=== PATIENT | female | born 1935 | race Two or more races ===

== ENCOUNTER 2020-12-10 13:50 | Emergency (ER) | payer MEDICARE ==
[~2020-12-10] VITALS: Ht 170.2 cm; Wt 66.0 kg
[2020-12-10 14:05] VITALS: BP 186/87
[2020-12-10] MEDS ORDERED: DIPH,PERTUSS(ACELL),TET VAC/PF 0.5 ML SYRINGE. VAX IM ONE (14:15)
--- NOTE | 2020-12-10 14:37 | PHYS DOC ---
Past Medical History Past Surgical History: Other Additional Past Surgical Histo: kidney donation (LYLA GONGORA INDUSTRIAL PSYCHOLOGIST) Smoking Status: Current Every Day Smoker Alcohol Use: None (LYLA GONGORA INDUSTRIAL PSYCHOLOGIST) General Adult EDM: Chief Complaint: MECHANICAL FALL HPI: HPI: Patient is a 85 year old female patient who presents to the ED today to be evaluated after falling. Patient states she was at the hospital, she accidentally fell hitting her head on the ground. Patient denies any loss of consciousness. Denies any neck pain, mid or low back pain. Reports being on aspirin 81 mg daily. She states she is from [place] visiting her brother who is in this hospital after having a heart attack and this is worrying her. (LYLA GONGORA INDUSTRIAL PSYCHOLOGIST) Review of Systems: Review of Systems: Constitutional: Denies fever or chills. [] Eyes: Denies change in visual acuity. [] HENT: Denies nasal congestion or sore throat. [] Respiratory: Denies cough or shortness of breath. [] Cardiovascular: Denies chest pain or edema. [] GI: Denies abdominal pain, nausea, vomiting, bloody stools or diarrhea. [] : Denies dysuria. [] Musculoskeletal: Denies back pain or joint pain. [] Integument: Denies rash. [] Neurologic: Reports falling and hitting her head on the ground, denies focal weakness or sensory changes. [] Psychiatric: Denies depression or anxiety. [] (LYLA GONGORA Nan INDUSTRIAL PSYCHOLOGIST) Heart Score: C/O Chest Pain: N/A Risk Factors: Risk Factors: DM, Current or recent (<one month) smoker, HTN, HLP, family history of CAD, obesity. Risk Scores: Score 0 - 3: 2.5% MACE over next 6 weeks - Discharge Home Score 4 - 6: 20.3% MACE over next 6 weeks - Admit for Clinical Observation Score 7 - 10: 72.7% MACE over next 6 weeks - Early Invasive Strategies (LYLA GONGORA Nan INDUSTRIAL PSYCHOLOGIST) Current Medications: Current Medications Medications (Trade) Dose Ordered Sig/Mary Start Time Stop Time Status Last Admin Dose Admin Diphtheria/ Tetanus/Acell Pertussis (ADACEL TDap SYRINGE) 0.5 ml ONCE ONCE 12/10/20 14:15 12/10/20 14:16 DC 12/10/20 14:25 0.5 ML (LYLA GONGORA INDUSTRIAL PSYCHOLOGIST) Allergies: Allergies: Allergies Coded Allergies Type Severity Reaction Last Updated Verified No Known Drug Allergies 12/10/20 No (LYLA GONGORA INDUSTRIAL PSYCHOLOGIST) Physical Exam: PE: Constitutional: Well developed, well nourished, no acute distress, non-toxic appearance. [] HENT: Normocephalic,bilateral external ears normal, oropharynx moist, no oral exudates, nose normal. [] Eyes: PERRLA, EOMI, conjunctiva normal, no discharge. [] Neck: Normal range of motion, no tenderness, supple, no stridor. [] Cardiovascular:Heart rate regular rhythm, no murmur [] Lungs & Thorax: Bilateral breath sounds clear to auscultation [] Abdomen: Bowel sounds normal, soft, no tenderness, no masses, no pulsatile masses. [] Skin: Warm, dry, no erythema, no rash. [] Back: No tenderness, no CVA tenderness. [] Extremities: No tenderness, no cyanosis, no clubbing, ROM intact, no edema. [] Neurologic: Bruising noted on the face, nasal bridge, right side of the mouth, alert and oriented X 3, normal motor function, normal sensory function, no focal deficits noted. Cranial nerves II through XII intact Psychologic: Affect normal, judgement normal, mood normal. [] (LYLA GONGORA INDUSTRIAL PSYCHOLOGIST) Current Patient Data: Vital Signs: Vital Signs Date Time Temp Pulse Resp B/P (MAP) Pulse Ox O2 Delivery O2 Flow Rate FiO2 12/10/20 14:05 97.5 84 16 186/87 (120) 97 Room Air 97.5 (LYLA GONGORA INDUSTRIAL PSYCHOLOGIST) EKG: EKG: [] (LYLA GONGORA INDUSTRIAL PSYCHOLOGIST) Radiology/Procedures: Radiology/Procedures: []PROCEDURE: CT MAXILLOFACIAL WO CONTRAST EXAM: CT HEAD WITHOUT IV CONTRAST CLINICAL HISTORY: Reason: fall / Spl. Instructions: / History: COMPARISON: None. TECHNIQUE: Routine CT of the head without contrast. Soft tissues and bone windows were reviewed. PQRS compliance statement - One or more of the following individualized dose reduction techniques were utilized for this study: 1. Automated exposure control 2. Adjustment of the mA and/or kV according to patient size 3. Use of iterative reconstruction technique FINDINGS: There is no evidence of hemorrhage, mass or extra-axial fluid collection. Thompson-white differentiation is maintained with no evidence of edema. Subcortical, periventricular as well as deep white matter hypoattenuation likely changes of chronic small vessel disease. There is no mass effect or shift of the intracranial structures. The ventricles and cerebral sulci are prominent for the patients stated age consistent with generalized cerebral volume loss. The cerebellum and brainstem are unremarkable. The calvarium demonstrates no evidence of fracture or focal lesion. There is normal aeration of the visualized paranasal sinuses and mastoid air cells. The visualized portions of the orbits are normal. Atherosclerotic calcifications of the intracranial internal carotid and vertebral arteries is seen. IMPRESSION: 1. No evidence for acute intracranial process. 2. White matter changes likely chronic small vessel disease. 3. The ventricles and cerebral sulci are prominent consistent with generalized cerebral volume loss. EXAM: CT CERVICAL SPINE WITHOUT IV CONTRAST CLINICAL HISTORY: fall neck pain COMPARISON: None available. TECHNIQUE: Helical CT of the cervical spine was performed. Axial, coronal and sagittal reformatted images were also performed. PQRS compliance statement - One or more of the following individualized dose reduction techniques were utilized for this study: 1. Automated exposure control 2. Adjustment of the mA and/or kV according to patient size 3. Use of iterative reconstruction technique FINDINGS: Vertebral body heights are preserved. No acute fracture. Straightening of the normal cervical lordosis. No spondylolisthesis. Moderate C6-C7 disc height loss. Small posterior disc osteophyte complex at C6- C7. Multilevel facet degenerative changes are seen. Mild left C4-5 facet degenerative changes are seen. Endplate osteophytes are seen at multiple levels. IMPRESSION: Normal CT scan of the cervical spine. EXAM: CT facial bones without contrast CLINICAL HISTORY: Reason: fall / Spl. Instructions: / History: COMPARISON: None available. TECHNIQUE: Helical CT of the face/paranasal sinuses was acquired and axial, coronal and sagittal reformatted images were generated. ---PQRS compliance statement - One or more of the following individualized dose reduction techniques were utilized for this study: 1. Automated exposure control 2. Adjustment of the mA and/or kV according to patient size 3. Use of iterative reconstruction technique--- FINDINGS: No definite fracture is noted of the facial bones. The visualized paranasal sinuses are well-aerated. No evidence of air-fluid levels. The mastoids are unremarkable. The globes, extraocular muscles, optic nerves and retrobulbar fat are normal. Visualized upper aerodigestive tract is normal. Advanced right TMJ DJD. Atherosclerotic calcifications of the intracranial internal carotid and vertebral arteries is seen. IMPRESSION: 1. No acute or facial bone fracture. 2. Severe right TMJ DJD. Electronically signed by: John Polanco MD (12/10/2020 2:40 PM) [facility] DICTATED and SIGNED BY: JOHN POLANCO MD DATE: 12/10/20 [id number] 0 (LYLA GONGORA APRN) Course & Med Decision Making: Course & Med Decision Making Pertinent Labs and Imaging studies reviewed. (See chart for details) This is a 85-year-old female patient who presents to the ED today to be evaluated after falling and hitting her head on the ground. No loss of consciousness. Tetanus updated in the ED. CT of the head, cervical spine, maxillofacial are negative for any acute findings. Discharge to home. Ice elevation encouraged. Follow-up with PCP when she returns back to [place]. Provided return precautions. (LYLA GONGORA APRN) Dragon Disclaimer: Dragon Disclaimer: This electronic medical record was generated, in whole or in part, using a voice recognition dictation system. (LYLA GONGORA APRN) Departure Departure Impression: Primary Impression: Fall from standing Qualified Codes: W19.XXXA - Unspecified fall, initial encounter Additional Impressions: Facial abrasion Qualified Codes: S00.81XA - Abrasion of other part of head, initial encounter Facial contusion Qualified Codes: S00.83XA - Contusion of other part of head, initial encounter CHI (closed head injury) Qualified Codes: S09.90XA - Unspecified injury of head, initial encounter Disposition: HOME / SELF CARE / HOMELESS Condition: STABLE Patient Instructions: Contusion, Head Injury, Adult, [id number] Additional Instructions: You were seen in the emergency room after falling. Your CT of the head, face and neck are negative for any acute findings. Try to keep the head of your bed elevated. Please apply ice to the affected areas. You can take Tylenol as needed for pain. Please apply Neosporin to the abrasions on your face. Follow- up with your doctor when you go back home Attending Signature I have participated in the care of this patient and I have reviewed and agree with all pertinent clinical information above including history, exam, and recommendations. (NIRMAL HERNANDEZ DO) LYLA GONGORA APRN Dec 10, 2020 14:36 NIRMAL HERNANDEZ DO Dec 10, 2020 14:59
--- NOTE | 2020-12-10 14:43 | RAD ---
EXAM: CT HEAD WITHOUT IV CONTRAST CLINICAL HISTORY: Reason: fall / Spl. Instructions: / History: COMPARISON: None. TECHNIQUE: Routine CT of the head without contrast. Soft tissues and bone windows were reviewed. PQRS compliance statement - One or more of the following individualized dose reduction techniques wer e utilized for this study: 1. Automated exposure control 2. Adjustment of the mA and/or kV according to patient size 3. Use of iterative reconstruction technique FINDINGS: There is no evidence of hemorrhage, mass or extra-axial fluid collection. Thompsno-white differentiation is maintained with no evidence of edema. Subcortical, periventricular as w ell as deep white matter hypoattenuation likely changes of chronic small vessel disease. There is no mass effect or shift of the intracranial structures. The ventricles and cerebral sulci are prominent for the patients stated age consistent with generaliz ed cerebral volume loss. The cerebellum and brainstem are unremarkable. The calvarium demonstrates no evidence of fracture or focal lesion. There is normal aeration of the visualized paranasal sinuses and mastoid air cells. The visualized portions of the orbits are normal. Atherosclerotic calcifications of the intracranial internal carotid and vertebral arteries is seen. IMPRESSION: 1. No evidence for acute intracranial process. 2. White matter changes likely chronic small vessel disease. 3. The ventricles and cerebral sulci are prominent consistent with generalized cerebral volume loss. EXAM: CT CERVICAL SPINE WITHOUT IV CONTRAST CLINICAL HISTORY: fall neck pain COMPARISON: None available. TECHNIQUE: Helical CT of the cervical spine was performed. Axial, coronal and sagittal reformatted im ages were also performed. PQRS compliance statement - One or more of the following individualized dose reduction techniques wer e utilized for this study: 1. Automated exposure control 2. Adjustment of the mA and/or kV according to patient size 3. Use of iterative reconstruction technique FINDINGS: Vertebral body heights are preserved. No acute fracture. Straightening of the normal cervical lordosis. No spondylolisthesis. Moderate C6-C7 disc height loss. Small posterior disc osteophyte complex at C6-C7. Multilevel facet d egenerative changes are seen. Mild left C4-5 facet degenerative changes are seen. Endplate osteophyte s are seen at multiple levels. IMPRESSION: Normal CT scan of the cervical spine. EXAM: CT facial bones without contrast CLINICAL HISTORY: Reason: fall / Spl. Instructions: / History: COMPARISON: None available. TECHNIQUE: Helical CT of the face/paranasal sinuses was acquired and axial, coronal and sagittal refo rmatted images were generated. ---PQRS compliance statement - One or more of the following individualized dose reduction techniques were utilized for this study: 1. Automated exposure control 2. Adjustment of the mA and/or kV according to patient size 3. Use of iterative reconstruction technique--- FINDINGS: No definite fracture is noted of the facial bones. The visualized paranasal sinuses are well-aerated. No evidence of air-fluid levels. The mastoids are unremarkable. The globes, extraocular muscles, optic nerves and retrobulbar fat are normal. Visualized upper aerodigestive tract is normal. Advanced right TMJ DJD. Atherosclerotic calcifications of the intracranial internal carotid and verte bral arteries is seen. IMPRESSION: 1. No acute or facial bone fracture. 2. Severe right TMJ DJD. Electronically signed by: John Carrion MD (12/10/2020 2:40 PM) [facility]
== END 2020-12-10 15:19 | disposition home or self-care (01) ==
LOC: ER 13:50
DX: S00.83XA Contusion of other part of head, initial encounter (principal); F17.200 Nicotine dependence, unspecified, uncomplicated; W18.39XA Other fall on same level, initial encounter; Y93.89 Activity, other specified; Y92.89 Other specified places as the place of occurrence of the external cause; Y99.8 Other external cause status
CPT/HCPCS: 70450; 70486; 72125; 90471; 90715; 99284-25